=== PATIENT | female | born 1935 | race African-American/Black ===

== ENCOUNTER 2020-07-10 11:47 | Inpatient (IN) | payer OTHER ==
[2020-07-10 12:38] VITALS: BMI 25.7
[2020-07-10] MEDS ORDERED: ACETAMINOPHEN 1000 MG/100 ML BAG IVPB ONE (12:42)
[2020-07-10] MEDS ORDERED: SODIUM CHLORIDE 0.9% 500 ML INFUS.BAG IV ONE (12:42)
[2020-07-10 13:26] LABS: EPI CELLS 15 /uL (0-25.1); HYALINE CASTS 1 /uL (0-3.1); PH,URINE 6.5 (5.0-8.0); URINE APPEARANCE CLEAR; URINE BACTERIA 42 /uL (0-1359); URINE BILIRUBIN NEGATIVE (NEGATIVE); URINE COLOR YELLOW; URINE GLUCOSE (UA) NEGATIVE (NEGATIVE); URINE KETONE 1+ (NEGATIVE); URINE LEUK ESTERASE NEGATIVE (NEGATIVE); URINE NITRITE NEGATIVE (NEGATIVE); URINE PROTEIN 2+ (NEGATIVE); URINE RBC 6 /uL (0-23.9); URINE UROBILINOGEN 0.2 mg/dL (0.2-1.0); URINE WBC 6 /uL (0-25.8)
[2020-07-10 13:31] LABS: BASO % 0.2 % (0-2.0); HEMATOCRIT 37.3 % (32.4-45.2); HEMOGLOBIN 12.1 GM/dL (10.7-15.3); LYMPH % 20.2 % (8-40); MCH 29.1 pg (25.7-33.7); MCHC 32.5 g/dl (32.0-36.0); MEAN CELL VOLUME 89.6 fl (80-96); MEAN PLT VOLUME 8.8 fl (7.5-11.1); NEUT % 71.6 % (42.8-82.8); PLATELET COUNT 163 K/MM3 (134-434); RBC 4.16 M/mm3 (3.60-5.2); RDW 15.5 % (11.6-15.6); WHITE BLOOD COUNT 5.8 K/mm3 (4.0-10.0)
[2020-07-10 13:59] LABS: CHLORIDE 104 mmol/L (98-107); SODIUM 139 mmol/L (136-145)
[2020-07-10 14:01] LABS: CALCIUM 9.2 mg/dL (8.5-10.1)
[2020-07-10 14:02] LABS: ALBUMIN 3.3 g/dl (3.4-5.0); ANION GAP 11 MMOL/L (8-16); BLOOD UREA NITROGEN 15.6 mg/dL (7-18); CO2 24 mmol/L (21-32); GLUCOSE,RANDOM 83 mg/dL (74-106)
[2020-07-10 14:05] LABS: CREATININE 0.9 mg/dL (0.55-1.3); SGOT/AST 31 U/L (15-37); SGPT/ALT 21 U/L (13-61)
[2020-07-10 14:06] LABS: BILIRUBIN,TOTAL 0.4 mg/dL (0.2-1); TOT PROT 7.4 g/dl (6.4-8.2)
[2020-07-10 14:08] LABS: ALK PHOS 46 U/L (45-117)
[2020-07-10] MEDS ORDERED: VANCOMYCIN 1 GM in D5W (PRE-DOCKED) 1,000 MG/250 ML IVPB ONE (16:05)
[2020-07-10] MEDS ORDERED: PIPERACILLIN/TAZOB 3.375 GM 3.375 GM in DEXTROSE 5%-WATER - 50 ML IVPB ONE (16:05)
[2020-07-10] MEDS ORDERED: AZITHROMYCIN IVPB 500 MG in DEXTROSE 5%-WATER - 250 ML IVPB ONE (16:06)
[2020-07-10] MEDS ORDERED: AZITHROMYCIN IVPB 500 MG/250 ML BAG IVPB ONE (16:37)
[2020-07-10] MEDS ORDERED: PIPERACILLIN/TAZOB 3.375 GM 3.375 GM/50 ML BAG IVPB ONE (16:37)
[2020-07-10] MEDS ORDERED: VANCOMYCIN 1 GRAM (PRE-DOCKED) 1,000 MG/250 ML BAG IVPB ONE (19:56)
[2020-07-10] MEDS ORDERED: PIPERACILLIN/TAZOB 4.5 GM 4.5 GM in DEXTROSE 5%-WATER 100 ML IVPB SCH (23:00)
[2020-07-10] MEDS ORDERED: PIPERACILLIN/TAZOB 4.5 GM 4.5 GM/100 ML BAG IVPB ONE (23:57)
[2020-07-11] MEDS: PIPERACILLIN/TAZOB 4.5 GM 4.5 GM in DEXTROSE 5%-WATER 100 ML IVPB SCH ×2 (00:04→08:35)
[2020-07-11] MEDS ORDERED: SODIUM CHLORIDE 1,000 ML IV SCH (01:45)
[2020-07-11] MEDS ORDERED: VANCOMYCIN 1 GRAM (PRE-DOCKED) 1,000 MG/250 ML BAG IVPB SCH (08:00)
[2020-07-11] MEDS ORDERED: VANCOMYCIN 1 GRAM (PRE-DOCKED) 1,000 MG/250 ML BAG IVPB ONE (08:27)
[2020-07-11 08:28] LABS: HEMATOCRIT 38.7 % (32.4-45.2); HEMOGLOBIN 12.4 GM/dL (10.7-15.3); MCH 29.3 pg (25.7-33.7); MCHC 32.1 g/dl (32.0-36.0); MEAN CELL VOLUME 91.2 fl (80-96); MEAN PLT VOLUME 8.6 fl (7.5-11.1); PLATELET COUNT 156 K/MM3 (134-434); RBC 4.24 M/mm3 (3.60-5.2); RDW 15.6 % (11.6-15.6); WHITE BLOOD COUNT 5.5 K/mm3 (4.0-10.0)
[2020-07-11] MEDS ORDERED: PIPERACILLIN/TAZOB 4.5 GM 4.5 GM/100 ML BAG IVPB ONE (08:28)
[2020-07-11] MEDS ORDERED: dilTIAZem HCL 30 MG TABLET ONE (08:38)
[2020-07-11] MEDS ORDERED: FERROUS SO4 325 MG TABLET (FP) ONE (08:38)
[2020-07-11] MEDS ORDERED: CHOLECALCIFEROL (VIT D3) 1,000 UNIT (25 MCG) TABLET ONE (08:38)
[2020-07-11] MEDS: dilTIAZem HCL 30 MG TABLET PO SCH ×2 (08:59→23:05)
[2020-07-11] MEDS: FERROUS SO4 325 MG TABLET (FP) PO SCH ×2 (08:59→23:05)
[2020-07-11] MEDS: CHOLECALCIFEROL (VIT D3) 1,000 UNIT (25 MCG) TABLET PO SCH (08:59)
[2020-07-11] MEDS ORDERED: PATIENT'S OWN MEDICATION (NON-FORMULARY) (Ferrous Sulfate [Ferrous Sulfate] 325 MG Tablet) PO SCH (10:00)
[2020-07-11] MEDS ORDERED: VANCOMYCIN 1 GM PREMIX - 1 GM/200 ML BAG IVPB SCH (10:00)
[2020-07-11] MEDS ORDERED: LOSARTAN 50MG/HCTZ 12.5MG 1 TAB PO SCH (10:00)
[2020-07-11] MEDS ORDERED: PIPERACILLIN/TAZOB 2.25 GM 2.25 GM in DEXTROSE 5%-WATER - 50 ML IVPB SCH ×3 (10:15→16:00)
[2020-07-11] MEDS: DOCUSATE SODIUM 100 MG CAPSULE (FP) PO SCH ×2 (10:43→23:06)
[2020-07-11 11:01] LABS: ALBUMIN 2.8 g/dl (3.4-5.0); BILIRUBIN,TOTAL 0.4 mg/dL (0.2-1); BLOOD UREA NITROGEN 12.4 mg/dL (7-18); CALCIUM 8.8 mg/dL (8.5-10.1); CREATININE 0.9 mg/dL (0.55-1.3); MAGNESIUM 1.5 mg/dL (1.8-2.4); PHOSPHOROUS 2.3 mg/dL (2.5-4.9); TOT PROT 6.6 g/dl (6.4-8.2)
[2020-07-11] MEDS ORDERED: MAGNESIUM SULF 50% (8.12 MEQ/2 ML-1 GM VIAL) IVPB ONE (12:01)
[2020-07-11] MEDS ORDERED: MAGNESIUM SULFATE IN WATER 2 GM/50 ML IVPB IVPB ONE (12:15)
[2020-07-11] MEDS ORDERED: diphenhydrAMINE HCL 25 MG CAPSULE (FP) PO ONE ×3 (12:45→15:30)
[2020-07-11] MEDS ORDERED: QUEtiapine FUMARATE 25 MG TABLET PO ONE (17:41)
[2020-07-11] MEDS: PIPERACILLIN/TAZOB 3.375 GM 3.375 GM in DEXTROSE 5%-WATER - 50 ML IVPB SCH (18:52)
[2020-07-11] MEDS: RIVAROXABAN 20 MG TABLET PO SCH (23:06)
[2020-07-12] MEDS ORDERED: DEXTROSE 5%-WATER - 50 ML IVPB ONE ×3 (02:07→17:45)
[2020-07-12] MEDS ORDERED: PIPERACILLIN/TAZOBACTAM 3.375 GM VIAL IVPB ONE ×3 (02:07→17:44)
[2020-07-12] MEDS: PIPERACILLIN/TAZOB 3.375 GM 3.375 GM in DEXTROSE 5%-WATER - 50 ML IVPB SCH ×3 (02:11→18:05)
[2020-07-12 09:23] LABS: BASO % 0.9 % (0-2.0); EOS % 0.4 % (0-4.5); HEMATOCRIT 38.3 % (32.4-45.2); HEMOGLOBIN 12.7 GM/dL (10.7-15.3); LYMPH % 17.6 % (8-40); MCH 29.6 pg (25.7-33.7); MCHC 33.2 g/dl (32.0-36.0); MEAN CELL VOLUME 89.1 fl (80-96); MEAN PLT VOLUME 9.4 fl (7.5-11.1); MONO % 11.6 % (3.8-10.2); NEUT % 69.5 % (42.8-82.8); PLATELET COUNT 184 K/MM3 (134-434); RBC 4.29 M/mm3 (3.60-5.2); RDW 15.2 % (11.6-15.6); WHITE BLOOD COUNT 6.2 K/mm3 (4.0-10.0)
[2020-07-12 09:58] LABS: CALCIUM 8.8 mg/dL (8.5-10.1)
[2020-07-12 09:59] LABS: MAGNESIUM 2.1 mg/dL (1.8-2.4)
[2020-07-12 10:00] LABS: BLOOD UREA NITROGEN 13.4 mg/dL (7-18)
[2020-07-12 10:02] LABS: CREATININE 0.9 mg/dL (0.55-1.3)
[2020-07-12] MEDS: LOSARTAN POTASSIUM 50 MG TABLET PO SCH (11:29)
[2020-07-12] MEDS: DOCUSATE SODIUM 100 MG CAPSULE (FP) PO SCH ×3 (11:29→22:47)
[2020-07-12] MEDS: FERROUS SO4 325 MG TABLET (FP) PO SCH ×2 (11:29→22:39)
[2020-07-12] MEDS: CHOLECALCIFEROL (VIT D3) 1,000 UNIT (25 MCG) TABLET PO SCH (11:29)
[2020-07-12] MEDS: POTASSIUM CHLORIDE ORAL LIQUID 20 MEQ/15 ML PO ONE ×2 (12:28→12:35)
[2020-07-12] MEDS: KCL 10 MEQ IVPB 10 MEQ/100 ML INFUS.BAG IVPB SCH ×3 (12:28→16:20)
[2020-07-12] MEDS ORDERED: ACETAMINOPHEN 325 MG TABLET (FP) PO PRN (13:50)
[2020-07-12] MEDS ORDERED: MELATONIN 5 MG TABLETS PO PRN (13:51)
[2020-07-12] MEDS: dilTIAZem HCL 30 MG TABLET PO SCH ×2 (16:20→22:39)
[2020-07-12] MEDS ORDERED: QUEtiapine FUMARATE 25 MG TABLET PO ONE (18:41)
[2020-07-12] MEDS ORDERED: PT OWN MED DRAWER 7, Y5N ONE (22:36)
[2020-07-12] MEDS: RIVAROXABAN 20 MG TABLET PO SCH (22:39)
[2020-07-13] MEDS ORDERED: DEXTROSE 5%-WATER - 50 ML IVPB ONE (01:29)
[2020-07-13] MEDS ORDERED: PIPERACILLIN/TAZOBACTAM 3.375 GM VIAL IVPB ONE (01:29)
[2020-07-13] MEDS: PIPERACILLIN/TAZOB 3.375 GM 3.375 GM in DEXTROSE 5%-WATER - 50 ML IVPB SCH (01:37)
[2020-07-13] MEDS ORDERED: PT OWN MED DRAWER 7, Y5N ONE (06:34)
[2020-07-13 07:38] LABS: BASO % 1.6 % (0-2.0); EOS % 1.3 % (0-4.5); HEMATOCRIT 37.4 % (32.4-45.2); HEMOGLOBIN 12.4 GM/dL (10.7-15.3); LYMPH % 18.2 % (8-40); MCH 29.5 pg (25.7-33.7); MCHC 33.1 g/dl (32.0-36.0); MEAN PLT VOLUME 8.5 fl (7.5-11.1); MONO % 14.6 % (3.8-10.2); NEUT % 64.3 % (42.8-82.8); PLATELET COUNT 221 K/MM3 (134-434); RBC 4.21 M/mm3 (3.60-5.2); WHITE BLOOD COUNT 6.3 K/mm3 (4.0-10.0)
[2020-07-13 07:50] LABS: ALBUMIN 2.6 g/dl (3.4-5.0); BLOOD UREA NITROGEN 16.4 mg/dL (7-18); CALCIUM 8.9 mg/dL (8.5-10.1); MAGNESIUM 2.1 mg/dL (1.8-2.4)
[2020-07-13 07:52] LABS: BILIRUBIN,TOTAL 0.8 mg/dL (0.2-1); TOT PROT 6.7 g/dl (6.4-8.2)
[2020-07-13 07:54] LABS: PHOSPHOROUS 2.9 mg/dL (2.5-4.9)
[2020-07-13] MEDS: CHOLECALCIFEROL (VIT D3) 1,000 UNIT (25 MCG) TABLET PO SCH (09:52)
[2020-07-13] MEDS: DOCUSATE SODIUM 100 MG CAPSULE (FP) PO SCH ×2 (09:52→22:05)
[2020-07-13] MEDS: dilTIAZem HCL 30 MG TABLET PO SCH ×2 (09:52→22:05)
[2020-07-13] MEDS: LOSARTAN POTASSIUM 50 MG TABLET PO SCH (09:52)
[2020-07-13] MEDS: FERROUS SO4 325 MG TABLET (FP) PO SCH ×2 (09:52→22:05)
[2020-07-13] MEDS ORDERED: POTASSIUM CHLORIDE TABS 20 MEQ TABLET.ER (FP) PO ONE (10:56)
[2020-07-13] MEDS: KCL 10 MEQ IVPB 10 MEQ/100 ML INFUS.BAG IVPB SCH ×3 (15:29→18:42)
[2020-07-13] MEDS: RIVAROXABAN 20 MG TABLET PO SCH (22:05)
[2020-07-14 07:28] LABS: BASO % 0.3 % (0-2.0); EOS % 1.2 % (0-4.5); HEMATOCRIT 36.4 % (32.4-45.2); HEMOGLOBIN 12.1 GM/dL (10.7-15.3); LYMPH % 16.2 % (8-40); MCH 29.7 pg (25.7-33.7); MCHC 33.3 g/dl (32.0-36.0); MEAN CELL VOLUME 89.2 fl (80-96); MEAN PLT VOLUME 8.7 fl (7.5-11.1); MONO % 12.7 % (3.8-10.2); NEUT % 69.6 % (42.8-82.8); PLATELET COUNT 246 K/MM3 (134-434); RBC 4.08 M/mm3 (3.60-5.2); RDW 15.4 % (11.6-15.6); WHITE BLOOD COUNT 7.3 K/mm3 (4.0-10.0)
[2020-07-14 07:57] LABS: CALCIUM 8.9 mg/dL (8.5-10.1)
[2020-07-14 07:58] LABS: BLOOD UREA NITROGEN 21.7 mg/dL (7-18); MAGNESIUM 2.1 mg/dL (1.8-2.4)
[2020-07-14 08:01] LABS: CREATININE 0.9 mg/dL (0.55-1.3); PHOSPHOROUS 2.4 mg/dL (2.5-4.9)
[2020-07-14] MEDS: FERROUS SO4 325 MG TABLET (FP) PO SCH ×2 (11:40→22:16)
[2020-07-14] MEDS: DOCUSATE SODIUM 100 MG CAPSULE (FP) PO SCH ×2 (11:40→22:16)
[2020-07-14] MEDS: LOSARTAN POTASSIUM 50 MG TABLET PO SCH (11:40)
[2020-07-14] MEDS: dilTIAZem HCL 30 MG TABLET PO SCH ×2 (11:41→22:16)
[2020-07-14] MEDS: CHOLECALCIFEROL (VIT D3) 1,000 UNIT (25 MCG) TABLET PO SCH (11:41)
[2020-07-14] MEDS ORDERED: NAPH,MB-DB/K PH,MBDB POWDER PACKET PO ONE ×2 (12:00→17:30)
[2020-07-14] MEDS ORDERED: SODIUM CHLORIDE 1,000 ML IV SCH (12:30)
[2020-07-14] MEDS: PIPERACILLIN/TAZOB 3.375 GM 3.375 GM in DEXTROSE 5%-WATER - 50 ML IVPB SCH (20:09)
[2020-07-14] MEDS: RIVAROXABAN 20 MG TABLET PO SCH (22:16)
[2020-07-15] MEDS: PIPERACILLIN/TAZOB 3.375 GM 3.375 GM in DEXTROSE 5%-WATER - 50 ML IVPB SCH ×2 (01:57→10:15)
[2020-07-15 09:30] LABS: BASO % 0.4 % (0-2.0); EOS % 1.1 % (0-4.5); HEMOGLOBIN 12.1 GM/dL (10.7-15.3); LYMPH % 16.7 % (8-40); MCH 29.5 pg (25.7-33.7); MCHC 32.9 g/dl (32.0-36.0); MEAN CELL VOLUME 89.6 fl (80-96); MEAN PLT VOLUME 8.6 fl (7.5-11.1); MONO % 11.6 % (3.8-10.2); NEUT % 70.2 % (42.8-82.8); PLATELET COUNT 265 K/MM3 (134-434); RBC 4.12 M/mm3 (3.60-5.2); RDW 15.2 % (11.6-15.6); WHITE BLOOD COUNT 7.9 K/mm3 (4.0-10.0)
[2020-07-15] MEDS ORDERED: DEXTROSE 5%-WATER - 50 ML IVPB ONE (09:51)
[2020-07-15] MEDS ORDERED: PIPERACILLIN/TAZOBACTAM 3.375 GM VIAL IVPB ONE (09:51)
[2020-07-15] MEDS: LOSARTAN POTASSIUM 50 MG TABLET PO SCH (09:59)
[2020-07-15] MEDS: dilTIAZem HCL 30 MG TABLET PO SCH ×2 (09:59→22:04)
[2020-07-15] MEDS: FERROUS SO4 325 MG TABLET (FP) PO SCH (09:59)
[2020-07-15] MEDS: DOCUSATE SODIUM 100 MG CAPSULE (FP) PO SCH ×2 (09:59→22:04)
[2020-07-15] MEDS: CHOLECALCIFEROL (VIT D3) 1,000 UNIT (25 MCG) TABLET PO SCH (09:59)
[2020-07-15 10:07] LABS: BLOOD UREA NITROGEN 16.4 mg/dL (7-18)
[2020-07-15 10:10] LABS: CALCIUM 9.1 mg/dL (8.5-10.1); CREATININE 0.8 mg/dL (0.55-1.3); PHOSPHOROUS 3.4 mg/dL (2.5-4.9)
[2020-07-15 10:15] LABS: MAGNESIUM 1.9 mg/dL (1.8-2.4)
[2020-07-15] MEDS: DOXYCYCLINE HYCLATE 100 MG CAPSULE PO SCH ×2 (12:39→17:40)
[2020-07-15] MEDS: AMOX TR/POT CLAV 875MG/125MG TABLETS (FP) PO SCH ×2 (12:39→17:40)
[2020-07-15 19:50] VITALS: BP 122/61; PULSE 63; TEMP 98.9
[2020-07-15] MEDS ORDERED: PT OWN MED DRAWER 7, Y5N ONE (22:01)
[2020-07-15] MEDS: RIVAROXABAN 20 MG TABLET PO SCH (22:04)
== END 2020-07-15 22:10 | DRG 871 ==
LOC: JER 11:47 → JERBED 15:59 → J7W 07-11 11:42
PROVIDERS: ADMIT Internal Medicine; ATTEND Internal Medicine
DX: A41.89 Other specified sepsis (principal); G93.41 Metabolic encephalopathy; J18.9 Pneumonia, unspecified organism; I10 Essential (primary) hypertension; E78.5 Hyperlipidemia, unspecified; E87.2 Acidosis; D50.0 Iron deficiency anemia secondary to blood loss (chronic); I77.1 Stricture of artery; E83.42 Hypomagnesemia; E87.6 Hypokalemia; I48.91 Unspecified atrial fibrillation; R50.9 Fever, unspecified; I44.4 Left anterior fascicular block
CPT/HCPCS: 36415; 70450-TC; 71045-TC-FY; 71250-TC; 80048; 80053; 81003; 83605; 83735; 84100; 84484; 85025; 85027; 87040; 87086; 87804; 87899; 93005; 93010; 97116-GP; 97162-GP; 99285-25; C9803; J0131; U0003